=== PATIENT | female | born 2000 | race African-American/Black ===

== ENCOUNTER 2020-05-04 16:17 | Emergency (ER) | payer OTHER, SELFPAY ==
[2020-05-04 16:35] VITALS: BP 131/83; PULSE 85; RESP 15; TEMP 36.7; O2SAT 99; BMI 19.2
[2020-05-04 16:49] VITALS: BP 115/68; PULSE 77; RESP 16; TEMP 36.9; O2SAT 98
--- NOTE | 2020-05-04 17:18 | ED_ITS ---
HPI - Wound/Laceration General Chief Complaint: Recheck/Abnormal Lab/Rx Stated Complaint: SUTURE REMOVAL Time Seen by Provider: 05/04/20 17:10 History of Present Illness HPI narrative: patient is here for suture removal after cutting right thumb 10 days ago and complains that it still hurts but denies any redness or fever or inability to move the thumb Related Data Allergies Allergy/AdvReac Type Severity Reaction Status Date / Time No Known Allergies Allergy Verified 05/04/20 16:35 Review of Systems Review of Systems: patient has no numbness no weakness no red stripe up the arm no chills no joint pain PMFSH Past Medical History Source: nursing notes reviewed Medical History (Updated 05/04/20 @ 17:23 by KIKO Yañez) No known health problems Social History Social History Advance Directives: No Advance Directives Information Provided: Yes Physical Exam Vital Signs and I&O and Narrative: Vital Signs and I&O: Vital Signs Temp 98.5 F 05/04/20 16:49 Pulse 77 05/04/20 16:49 Resp 16 05/04/20 16:49 BP 115/68 05/04/20 16:49 Pulse Ox 98 05/04/20 16:49 Intake & Output 05/03/20 05/04/20 05/04/20 18:59 06:59 18:59 Weight 47.627 kg Body Mass Index 19.2 the right thumb proximal phalanx has [address] with the wound well approximated with with full range of motion in the joints, tendon function is normal, sensation distal is normal, there is no redness swelling discharge or evidence of infection General appearance no acute distress Neck is supple Respiratory no respiratory distress A&O x3, no numbness no weakness Course Course Course Narrative: suture removal Four sutures were removed from the right thumb with a tweezers and a scissors, n o bleeding, no remaining foreign body visible Discharge Plan Discharge Clinical Impression: Encounter for removal of sutures Patient Disposition: Home, Self-Care Instructions: Stitches Removal (ED) Additional Instructions: follow with were connection for any ongoing issue There is no sign of any infection now Okay to return to work in all activities Referrals: [facility] [Provider Group] - 2 days [facility] [Outside] - 2 days Stand Alone Forms: Work/School Release
== END 2020-05-04 17:45 | disposition home or self-care (01) ==
PROVIDERS: Emergency Provider Internal Medicine; PCP Specialist
DX: M79.644 Pain in right finger(s) (principal); Z48.02 Encounter for removal of sutures
CPT/HCPCS: 99283

== ENCOUNTER → 2020-12-07 12:54 | Outpatient (BNVA) | payer OTHER, SELFPAY | PROVIDERS: PCP Specialist; Visit Provider Advanced Practice Midwife | DX: Z32.01 Encounter for pregnancy test, result positive (principal); N92.6 Irregular menstruation, unspecified | CPT/HCPCS: 81025; 99212 ==

== ENCOUNTER 2020-12-14 09:00 | Outpatient (REF) | payer OTHER, SELFPAY ==
--- NOTE | ~2020-12-14 | US_ITS ---
EXAMINATION: OBSTETRICAL ULTRASOUND, FIRST TRIMESTER HISTORY: 20-year-old at 10.0 weeks of gestation Viability LMP: 10/05/2020 COMPARISON: None in this TECHNIQUE: Real time transabdominal imaging with color and M-mode Doppler. FINDINGS: A single, live IUP CRL of 30.8 mm c/w 10.0wks is noted. Heart Rate: 163 beats per minute. Normal-appearing yolk sac is present. Both maternal ovaries are seen and appear normal. GESTATIONAL AGE: 1. GA from LMP: 10.0 wks 2. GA from AUA: 10.0 wks ESTIMATED DATE OF DELIVERY: 1. RADHA from LMP: 07/12/2021 2. RADHA from AUA: 07/12/2021 US/US OB <= 14 weeks fetus IMPRESSION: 1. A single live IUP 2. CRL corresponds to 10.0 weeks confirming the RADHA of 07/08/2021. This note was generated with a voice recognition program. Please excuse any errors which may have been overlooked during my review of this note. Sometimes these errors may affect the content or meaning of a given sentence.
== END 2020-12-14 09:01 | disposition home or self-care (01) ==
LOC: HO.US 09:00
PROVIDERS: Visit Provider Advanced Practice Midwife
DX: Z34.91 Encounter for supervision of normal pregnancy, unspecified, first trimester (principal)
CPT/HCPCS: 76801

== ENCOUNTER → 2020-12-21 14:16 | Outpatient (BNVA) | payer OTHER, SELFPAY | PROVIDERS: PCP Specialist; Visit Provider Advanced Practice Midwife | DX: Z13.89 Encounter for screening for other disorder (principal) | CPT/HCPCS: 99212 ==

== ENCOUNTER 2021-01-01 13:44 | Outpatient (REF) | payer OTHER, SELFPAY ==
[2021-01-02 09:12] LABS: BV Int Neg Control Negative (Negative); BV Int Pos Control Positive (Positive)
[2021-01-02 10:44] LABS: CT PCR NOT DETECTED (Not Detect.); NG PCR NOT DETECTED (Not Detect.)
== END 2021-01-01 13:45 | disposition home or self-care (01) ==
LOC: HO.LAB 13:44
PROVIDERS: PCP Specialist; Visit Provider Advanced Practice Midwife
DX: O98.511 Other viral diseases complicating pregnancy, first trimester (principal); B00.9 Herpesviral infection, unspecified; O99.321 Drug use complicating pregnancy, first trimester; F12.90 Cannabis use, unspecified, uncomplicated; O26.891 Other specified pregnancy related conditions, first trimester; R12 Heartburn; Z3A.12 12 weeks gestation of pregnancy
CPT/HCPCS: 81003; 87480; 87491; 87510; 87591; 87660; 88142; 99212

== ENCOUNTER 2021-01-04 12:54 | Outpatient (REF) | payer OTHER, SELFPAY ==
--- NOTE | ~2021-01-04 | US_ITS ---
EXAMINATION: OBSTETRICAL ULTRASOUND, FIRST TRIMESTER HISTORY: 20-year-old at 13.0 weeks of gestation NT screening COMPARISON: 12/14/2020 TECHNIQUE: Real time transabdominal imaging with color and M-mode Doppler. FINDINGS: A single, live IUP CRL of 72.4 mm c/w 13.3wks is noted. Heart Rate: 150 beats per minute. Normal yolk sac seen. NT was 1.7.mm. NB Present The embryo appears sonographically wnl for this GA. Left ovary is within normal limits. Right ovary could not be visualized. GESTATIONAL AGE: 1. Established GA: 13.0 wks 2. GA from AUA: 13.3 wks ESTIMATED DATE OF DELIVERY: 1. Established RADHA: 07/12/2021 2. RADHA from [facility]: 07/09/2021 US/US OB 1T nuc measure IMPRESSION: 1. A single live IUP 2. Size equals dates 3. NT of 1.7 mm MFM Consultation: I reviewed the ultrasound findings along with significance of NT measurement. The NT of less than 3mm is generally reassuring. However, the sensitivity for T21 detection is only 60%. I reviewed the availability of serum aneuploidy screening which includes cell-free DNA and placental protein based tests. I discussed the sensitivity, false-positive rate, and other limitations associated with each test. I also reviewed the availability of invasive diagnostic tests that are associated small but definite risk of miscarriage. We also reviewed the differences between screening tests and diagnostic tests. After our discussion, she opted for the First trimester screening that is based on cell-free DNA or non-invasive testing (NIPT). The result will be faxed to your office in approximately 7 days. A follow up at 18 weeks for survey has been scheduled. Thank you very much for this referral. Total time 30 minutes. The time spent was devoted to counseling the patient about the disease and diagnosis, coordinating care including reviewing her records, pertinent lab data and studies, as well as discussing diagnostic evaluation and workup, plan therapeutic interventions and future disposition of care. This includes any additional research needed to obtain further information in formulating the plan of care of this patient. This note was generated with a voice recognition program. Please excuse any errors which may have been overlooked during my review of this note. Sometimes these errors may affect the content or meaning of a given sentence.
[2021-01-04 15:45] LABS: Hematocrit 37.8 % (37-47); Hemoglobin 12.6 g/dl (12.0-16.0); Mean Corpuscular HGB Conc 33.3 g/dl (31.0-35.0); Mean Corpuscular Hemoglobin 29.9 pg (27.0-33.0); Mean Corpuscular Volume 89.8 fL (80-98); Platelet Count 258 X10*3/uL (160-400); Red Blood Count 4.21 X10*6/uL (4.20-5.50); Red Cell Distribution Width 13.6 % (11.0-16.0); White Blood Count 10.7 X10*3/uL (4.8-10.8)
[2021-01-04 16:06] LABS: Glucose 1 Hour PP 50gm Dose 184 mg/dL (60-140)
[2021-01-04 17:12] LABS: Amphetamine Screen Urine Not Detected (Not Detect); Barbiturates, Urine Not Detected (Not Detect); Benzodiazepines Screen Urine Not Detected (Not Detect); Cannabinoid Screen Urine POSITIVE (Not Detect); Cocaine Screen Urine Not Detected (Not Detect); Opiate Screen Urine Not Detected (Not Detect); Phencyclidine Screen Urine Not Detected (Not Detect)
[2021-01-04 17:23] LABS: HCG Quantitative 78832 mIU/mL
[2021-01-07 03:39] LABS: HBsAGNum1 0.18 S/CO (0.00-0.99); Hepatitis B Surface Antigen Negative (Negative); ~HepC Num1 0.05 S/CO (0.00-0.79); ~Hepatitis C Antibody Nonreactive (Nonreactive)
[2021-01-07 03:49] LABS: Syphilis Screen Nonreactive (Nonreactive)
[2021-01-07 03:52] LABS: HIV AB/AG Nonreactive (Nonreactive); HIV Num 1 0.08 S/CO (0.00-0.99)
[2021-01-07 15:07] LABS: Hematocrit 36.4 % (35.0-45.0); Hemoglobin 12.5 g/dL (11.7-15.5); MCH 30.4 pg (27.0-33.0); MCV 88.6 fL (80.0-100.0); RBC 4.11 Million/uL (3.80-5.10); RDW 14.1 % (11.0-15.0)
[2021-01-08 05:12] LABS: Rubella IgG Antibody 1.91 Index
== END 2021-01-04 12:55 | disposition home or self-care (01) ==
LOC: HO.US 12:54
PROVIDERS: Obstetrics & Gynecology; PCP Specialist; Visit Provider Advanced Practice Midwife
DX: O20.0 Threatened abortion (principal); Z36.82 Encounter for antenatal screening for nuchal translucency
CPT/HCPCS: 76813; 80307; 83020; 84702; 85014; 85018; 85027; 85041; 86762; 86780; 86787; 86803; 86850; 86900; 86901; 87086; 87147; 87340; 87389

== ENCOUNTER 2021-01-18 10:30 | Outpatient (REF) | payer OTHER, SELFPAY ==
--- NOTE | ~2021-01-18 | US_ITS ---
EXAMINATION: OBSTETRICAL ULTRASOUND, Follow up HISTORY: 20-year-old at the 15.0 weeks of gestation Inability to detect heart tone COMPARISON: 01/04/2021 TECHNIQUE: Real time transabdominal imaging with color and M-mode Doppler. PRESENTATION: Vertex PLACENTA LOCATION: Anterior without previa AMNIOTIC FLUID: Normal MEASUREMENTS: 1. Heart Rate: 163 beats per minute Anatomy exam was not attempted due to early gestational age. GESTATIONAL AGE: 1. Established GA: 15.0 wks 2. GA from AUA: N/A wks ESTIMATED DATE OF DELIVERY: 1. Established RADHA: 07/12/2021 2. RADHA from AUA: N/A US/US OB follow up IMPRESSION: 1. A single fetus a single active fetus with heart rate of 163 bpm. 2. Normal amniotic fluid volume RECOMMENDATIONS: 1. Follow-up in approximately one month for survey Thank you very much for this referral. This note was generated with a voice recognition program. Please excuse any errors which may have been overlooked during my review of this note. Sometimes these errors may affect the content or meaning of a given sentence.
== END 2021-01-18 10:31 | disposition home or self-care (01) ==
LOC: HO.US 10:30
PROVIDERS: PCP Specialist; Visit Provider Obstetrics & Gynecology
DX: O26.892 Other specified pregnancy related conditions, second trimester (principal); R10.2 Pelvic and perineal pain; Z3A.15 15 weeks gestation of pregnancy
CPT/HCPCS: 76816; 81003; 99212

== ENCOUNTER → 2021-01-29 14:29 | Outpatient (BNVA) | payer OTHER, SELFPAY | PROVIDERS: PCP Specialist; Visit Provider Obstetrics & Gynecology | DX: O98.312 Other infections with a predominantly sexual mode of transmission complicating pregnancy, second trimester (principal); A60.00 Herpesviral infection of urogenital system, unspecified; Z3A.16 16 weeks gestation of pregnancy | CPT/HCPCS: 99212 ==

== ENCOUNTER 2021-02-15 13:37 | Outpatient (REF) | payer OTHER, SELFPAY ==
--- NOTE | ~2021-02-15 | US_ITS ---
EXAMINATION: US OBSTETRICAL CLINICAL INFORMATION: 20-year-old at 19.0 weeks of gestation Screening for anomaly COMPARISON: 01/18/2021 TECHNIQUE: Real-time transabdominal ultrasound was performed using C1-5 megahertz transducer. FINDINGS: A single, active, fetus is seen in vertex presentation. The placenta is anterior without previa, and the amniotic fluid volume is wnl. MEASUREMENTS: 1. Biparietal Diameter: 4.4 cm; 19.3 wks 2. Occipital Frontal Diameter: 5.8 cm 3. Head Circumference: 16.3 cm; 19.1 wks 4. Abdominal Circumference: 14.3 cm; 19.5 wks 5. Femur Length: 3.0 cm; 19.1 wks 6. Humerus Length: 2.8 cm; 19.0 wks 7. Tibia Length: 2.6 cm; 19.2 wks 8. Ulna Length: 2.4 cm; 18.5 wks 9. Lateral ventricle: 0.5 cm 10. Cerebellum: 1.9 cm; 19.6 wks 11. Cisterna Magna: 0.52 cm 12. Nuchal Fold: 3.4 mm 13. Heart Rate: 149 beats per minute Rt ovary: normal Lt ovary: normal Cervical length 4.4 cm on T/A. GESTATIONAL AGE: 1. Established GA: 19.0 wks 2. GA from [facility]: 19.3 wks ESTIMATED DATE OF DELIVERY: 1. Established RADHA: 07/12/2021 2. RADHA from [facility]: 07/09/2021 ANATOMY: The visualized anatomy includes but not limited to: 1. Cranium: Normal 2. Intracranial anatomy: cavum septum pellucidi, lateral ventricles, choroid plexus, cerebellum, posterior fossa, third and fourth ventricles. 3. face: orbits, lip/palate, profile, nasal bone 4. Heart: four-chamber view of the heart, ventricular septum, foramen ovale, pulmonary vein, left and right outflow tracts, three-vessel view, 3 vessel trachea view, aortic and ductal arches, situs.. 5. Diaphragm: Normal 6. Abdominal wall: Normal 7. Cord Insertion: Normal 8. Spine: Cervical, thoracic, lumbar, sacral. 9. Stomach: Normal size and shape 10. Right Kidney: Normal 11. Left Kidney: Normal 12. 3 vessel cord: Normal 13. Upper extremity: Open hands, fifth digit. 14. Lower extremity: Tibia, fibula, bilateral feet. 15. Bladder: Normal 16. Genitalia: Male, patient aware US/US OB /maternal detail IMPRESSION: 1. Single, living, intrauterine with appropriate biometry. 2. Normal survey DISCUSSION: I reviewed today's ultrasound findings. We discussed the limitations of ultrasound in diagnosing aneuploidy and other congenital abnormalities. I reviewed the differences between screening test and diagnostic test. Amniocentesis was discussed and declined. She was informed that the baseline incidence of congenital abnormalities is approximately 3-5%. Not all these conditions are diagnosable in utero. RECOMMENDATIONS: 1. f/u PRN Thank you for allowing me to participate in her care. Total time 20 minutes. The time spent was devoted to counseling the patient about the disease and diagnosis, coordinating care including reviewing her records, pertinent lab data and studies, as well as discussing diagnostic evaluation and workup, plan therapeutic interventions and future disposition of care. This includes any additional research needed to obtain further information in formulating the plan of care of this patient. This note was generated with a voice recognition program. Please excuse any errors which may have been overlooked during my review of this note. Sometimes these errors may affect the content or meaning of a given sentence.
== END 2021-02-15 13:38 | disposition home or self-care (01) ==
LOC: HO.US 13:37
PROVIDERS: Visit Provider Advanced Practice Midwife
DX: O35.9XX0 Maternal care for (suspected) fetal abnormality and damage, unspecified, not applicable or unspecified (principal)
CPT/HCPCS: 76811

== ENCOUNTER 2021-02-19 13:31 | Outpatient (REF) | payer OTHER, SELFPAY | END 2021-02-19 13:32 | disposition home or self-care (01) | LOC: HO.LAB 13:31 | PROVIDERS: Visit Provider Advanced Practice Midwife | DX: O21.9 Vomiting of pregnancy, unspecified (principal); Z3A.19 19 weeks gestation of pregnancy | CPT/HCPCS: 87086; 99212 ==

== ENCOUNTER → 2021-03-06 14:28 | Outpatient (BNVA) | payer OTHER, SELFPAY | PROVIDERS: Visit Provider Advanced Practice Midwife | DX: O99.810 Abnormal glucose complicating pregnancy (principal); Z3A.21 21 weeks gestation of pregnancy | CPT/HCPCS: 99212 ==

== ENCOUNTER → 2021-04-05 14:26 | Outpatient (BNVA) | payer OTHER, SELFPAY | PROVIDERS: PCP Internal Medicine; Visit Provider Advanced Practice Midwife | DX: O99.810 Abnormal glucose complicating pregnancy (principal); Z3A.26 26 weeks gestation of pregnancy | CPT/HCPCS: 81003; 99212 ==

== ENCOUNTER 2021-04-18 10:40 | Outpatient (REF) | payer OTHER, SELFPAY ==
[2021-04-18 12:54] LABS: Appearance Urine HAZY; Color Urine YELLOW; Glucose Urine UA NEG (NEG); Leukocyte Esterase Urine NEG (NEG); Nitrite Urine NEG (NEG); Urine Blood NEG (NEG); Urine Ketones NEG (NEG); Urine Protein TRACE MG/DL (NEG-TRACE)
[2021-04-18 14:49] LABS: Amorphous Sediment Urine 4+ /LPF; Bacteria Urine 1+ /LPF; RBC Urine 0 /HPF (0); Squamous Epithelial Cell Urine 3+ /LPF; WBC Urine 0-2 /HPF (0-4)
== END 2021-04-18 10:41 | disposition home or self-care (01) ==
LOC: HO.LAB 10:40
PROVIDERS: Absent Provider Advanced Practice Midwife; PCP Specialist; Visit Provider Advanced Practice Midwife
DX: Z34.92 Encounter for supervision of normal pregnancy, unspecified, second trimester (principal); R11.2 Nausea with vomiting, unspecified
CPT/HCPCS: 81001

== ENCOUNTER → 2021-04-19 13:32 | Outpatient (BNVA) | payer OTHER, SELFPAY | PROVIDERS: PCP Internal Medicine; Visit Provider Advanced Practice Midwife | DX: Z34.83 Encounter for supervision of other normal pregnancy, third trimester (principal); Z3A.28 28 weeks gestation of pregnancy; Z83.3 Family history of diabetes mellitus | CPT/HCPCS: 99212 ==

== ENCOUNTER → 2021-06-10 14:42 | Outpatient (BNVA) | payer OTHER, SELFPAY | PROVIDERS: PCP Internal Medicine; Visit Provider Advanced Practice Midwife | DX: O26.843 Uterine size-date discrepancy, third trimester (principal); Z3A.35 35 weeks gestation of pregnancy | CPT/HCPCS: 81003; 99212 ==

== ENCOUNTER 2021-06-11 11:30 | Outpatient (REF) | payer OTHER, SELFPAY ==
[2021-06-11 12:07] LABS: Hematocrit 29.5 % (37.0-47.0); Hemoglobin 9.4 g/dl (12.0-16.0); Mean Corpuscular HGB Conc 31.9 g/dl (31.0-35.0); Mean Corpuscular Hemoglobin 28.3 pg (27.0-33.0); Mean Corpuscular Volume 88.9 fL (80.0-98.0); Mean Platelet Volume 12.8 fL (9.4-12.3); Platelet Count 238 X10*3/uL (160-400); Red Blood Count 3.32 X10*6/uL (4.20-5.50); Red Cell Distribution Width 14.2 % (11.0-16.0); White Blood Count 8.8 X10*3/uL (4.8-10.8)
[2021-06-11 13:03] LABS: Glucose Fasting 68 mg/dL (60-99)
[2021-06-11 13:32] LABS: Glucose 1 Hour 181 mg/dL
[2021-06-11 14:42] LABS: Glucose 2 Hour 180 mg/dL
[2021-06-11 15:38] LABS: Glucose 3 Hour 149 mg/dL
[2021-06-12 08:31] LABS: Syphilis Screen Nonreactive (Nonreactive)
== END 2021-06-11 11:31 | disposition home or self-care (01) ==
LOC: HO.LAB 11:30
PROVIDERS: Absent Provider Advanced Practice Midwife; PCP Specialist; Visit Provider Advanced Practice Midwife
DX: O99.810 Abnormal glucose complicating pregnancy (principal); R73.9 Hyperglycemia, unspecified
CPT/HCPCS: 36415; 82951; 85027; 86780

== ENCOUNTER 2021-10-19 16:25 | Emergency (ER) | payer OTHER, SELFPAY ==
[2021-10-19 16:37] VITALS: BP 132/81; PULSE 93; RESP 12; TEMP 36.7; O2SAT 98; BMI 20.6
--- NOTE | 2021-10-19 16:49 | ED.DENTAL ---
HPI - Dental/Oral General Chief complaint: Dental/Oral Stated complaint: wisdom tooth pain/cant swallow Time Seen by Provider: 10/19/21 16:49 Source: patient Mode of arrival: ambulatory Limitations: no limitations History of Present Illness HPI Narrative: 20 y/o female presenting with left sided wisdom tooth pain for the last 3 days. She states she was told she needed her wisdom teeth out a few years ago when she saw her dentist but never did because she was scared. She states 3 days ago she started having swelling and pain in her left lower wisdom tooth. She states it hurts to fully open her jaw and chew. She has not eaten anything today because of the pain but is okay with drinking. She denies any throat swelling, fever, chills. No neck swelling. MD Complaint: tooth pain Location: Tooth # (17) Onset (ago): day(s) (3) Duration: constant Severity: severe Severity scale (1-10): 9 Relieving factors: nothing Exacerbating factors: chewing and swallowing Context: poor dental care Associated symptoms: gum swelling and pain with swallowing Treatment prior to arrival: none Related Data Previous Rx's Medication Instructions Recorded vitamin with calcium 1 tab PO DAILY #30 tab 12/07/20 no.72-iron 27 mg-folic acid 1 mg tablet ( Vitamins Plus Low Iron) ondansetron HCl 4 mg tablet 4 mg PO Q8H PRN #30 tab 02/19/21 (Zofran) blood sugar diagnostic (FreeStyle #100 ea 06/12/21 Lite Strips) blood-glucose meter (FreeStyle #1 ea 06/12/21 Lite Meter) lancets 28 gauge (FreeStyle #100 ea 06/12/21 Lancets) ferrous sulfate 324 mg (65 mg 324 mg PO TID #90 tab 06/13/21 iron) tablet,delayed release amoxicillin 500 mg-potassium 1 tab PO Q12H #20 tab 10/19/21 clavulanate 125 mg tablet (Augmentin) ibuprofen 600 mg tablet 600 mg PO Q8H PRN #14 tab 10/19/21 tramadol 50 mg tablet 50 mg PO Q8H PRN #8 tab 10/19/21 Allergies Allergy/AdvReac Type Severity Reaction Status Date / Time No Known Allergies Allergy Verified 10/19/21 16:37 Review of Systems Constitutional: Constitutional: Denies chills, Denies fever(s) and Reports headache(s) Eyes: Eyes: Reports no additional eye complaints ENT: Reports dental pain, Denies dizziness, Denies dry mouth, Reports facial pain, Reports headache(s), Denies lip swelling, Reports mouth pain, Denies throat swelling and Denies tongue swelling Cardiovascular: Cardiovascular: Denies chest pain Respiratory: Respiratory: Denies cough Gastrointestinal: Gastrointestinal: Denies nausea and Denies vomiting Integumentary/Breasts: Skin/Breast: Denies rash Neurologic: Denies dizziness and Reports headache(s) Psychiatric: Psychiatric: Reports anxiety Hematologic/Lymphatic: Hematologic/Lymphatic: Denies easy bleeding Allergic/Immunologic: Allergic/Immunologic: Denies lip swelling, Denies throat swelling and Denies tongue swelling PMFSH Past Medical History Medical History HSV (herpes simplex virus) anogenital infection Family History Family History Mother Hypertension Father High cholesterol Maternal Grandmother Diabetes Paternal Grandmother Alzheimers disease Diabetes Brother Sickle cell trait Brother Autism Social History Social History Household Members: Family Alcohol intake: never Patient Tobacco Use Status: Former Tobacco user Substance Use Type: Marijuana Advance Directives: No Advance Directives Information Provided: No Gender identity: Female Physical Exam Vital Signs: Vital Signs: Last Vital Signs Temp 98.0 F 10/19/21 16:37 Pulse 93 10/19/21 16:37 Resp 12 10/19/21 16:37 BP 132/81 10/19/21 16:37 Pulse Ox 98 10/19/21 16:37 BMI result Body Mass Index 20.6 Const: General: cooperative, healthy appearing and no acute distress Nutritional Appearance: average body habitus Orientation/consciousness: patient oriented x3 Limitations: no limitations HEENT: Head: Yes normal to inspection, Yes normocephalic and Yes atraumatic Ears: hearing grossly normal bilaterally and TM's normal bilaterally General nose exam: Normal external nose present and Normal nares present Face and sinus: Yes normal facial exam and Yes face symmetric Mouth: Normal oral and palatal mucosa present, lip normal, tongue normal and moist mucous membranes Teeth and gingiva: abnormal tooth and associated gingiva lower left third molar tender and with associated gingival edema and gingiva abnormal edematous and tender Throat: Yes posterior oropharynx normal, Yes tonsils normal and Yes uvula midline Eyes: General: appearance normal, both eyes and all related structures Neck: Neck: Yes normal visual inspection, Yes trachea midline, No anterior neck swelling, Yes lymphadenopathy (left submandibular) and Yes tender Chest: Chest palpation & inspection: normal inspection of the chest Resp: Effort & Inspection: normal respiratory effort and able to speak in complete sentences Skin: General skin exam: no rashes or lesions noted Neuro: General: patient oriented x3 Extrem: General: Yes normal to inspection and Yes full ROM Psych: Appearance: grossly normal and well kempt Mental Status: mental status grossly normal Course Course Course Narrative: 28-year-old female presenting to the ER with left 3rd molar pain with associated gingival swelling. No palpable abscess on examination. Most likely has impacted wisdom teeth that needs extraction. Will give empiric antibiotics, NSAID and pain control. She has a appointment with the dentist on November 08. Will provide emergency dentist list as well in case she can get in sooner. Stable for discharge home. Critical Care Time Critical Care Time Critical Care Time: No Discharge Plan Discharge Clinical Impression: Toothache Patient Disposition: Home, Self-Care Instructions: Toothache (ED) Additional Instructions: Take the prescribed medications as directed. Also recommend taking Tylenol 1000 mg every 6 hours around the clock. Recommend [id number] Orajel. You could also use a hot tea bag to the area to help with pain and swelling. Follow-up with dentist EVETTE. If you develop new or worsening symptoms call 911 or come back to the ER for further evaluation. Prescriptions: New amoxicillin-pot clavulanate [Augmentin] 500-125 mg tablet 1 tab PO Q12H Qty: 20 0RF ibuprofen 600 mg tablet 600 mg PO Q8H PRN (Reason: pain) Qty: 14 0RF tramadol 50 mg tablet 50 mg PO Q8H PRN (Reason: pain) Qty: 8 0RF No Action (DME) blood-glucose meter [FreeStyle Lite Meter] Kit See Rx Instructions miscellaneous .MEDSUPPLY Qty: 1 0RF Rx Instructions: As directed QID (DME) FreeStyle Lite Strips Strip See Rx Instructions .MEDSUPPLY Qty: 100 1RF Rx Instructions: As directed QID x 30d (DME) lancets [FreeStyle Lancets] 28 gauge misc See Rx Instructions .MEDSUPPLY Qty: 100 1RF Rx Instructions: As directed QID x30d ferrous sulfate 324 mg (65 mg iron) tablet,delayed release (DR/EC) 324 mg PO TID Qty: 90 2RF Vitamin Plus Low Iron 27 mg iron- 1 mg tablet 1 tab PO DAILY Qty: 30 11RF ondansetron HCl [Zofran] 4 mg tablet 4 mg PO Q8H PRN (Reason: nausea and vomiting) Qty: 30 1RF
[2021-10-19] MEDS: traMADoL HCL 50 MG TABLET PO (17:04)
[2021-10-19] MEDS: Amoxicillin/Potassium Clav 500 MG TABLET PO (17:04)
[2021-10-19] MEDS: Ketorolac Tromethamine 30 MG/ML VIAL IM (17:05)
== END 2021-10-19 17:31 | disposition home or self-care (01) ==
LOC: HO.ED 17:01
PROVIDERS: Emergency Provider Internal Medicine
DX: K08.89 Other specified disorders of teeth and supporting structures (principal)
CPT/HCPCS: 96372; 99284; J1885

== ENCOUNTER 2022-06-13 18:53 | Emergency (ER) | payer OTHER, SELFPAY ==
--- NOTE | ~2022-06-13 | XR_ITS ---
EXAMINATION: XR CHEST CLINICAL INFORMATION: Cough and fever. COMPARISON: None TECHNIQUE: Frontal view of the chest was obtained. 9:48 PM FINDINGS: No significant abnormality is noted involving the heart, lungs, mediastinum, bony thorax or soft tissues. XR/XR chest 1V IMPRESSION: Unremarkable examination.
[2022-06-13 21:39] VITALS: BP 107/73; PULSE 108; RESP 16; TEMP 37.3; O2SAT 99; BMI 21.0
--- OUTSIDE RECORDS SUMMARY | 2022-06-13 21:45 | XMS_ITS | Continuity of Care Document ---
:2000 Author Organization [facility] Address [address] [place] [address]- Care Team Providers Name Role Phone Not on Staff, PCP Primary Care Physician Unavailable Encounter [facility] [place] Date(s): 01/17/21 - 01/17/[address] [id number] Discharge Disposition: A-D/C Home Attending Physician: Evelyn Wilks MD Admitting Physician: Evelyn Wilks MD Referring Physician: Efe MONTERO, Evelyn Uribe Medications Amoxicillin Capsule 500 mg, By Mouth, 3 times a day, Maintenance, 01/17/21 13:17:00 EDT Start Date: 01/17/21 Status: OrderedFlagyl 500 mg oral tablet 1 tablet = 500 mg, By Mouth, Every 12 hours, # 20 tablet, 0 Refills, Maintenance, 01/17/21 13:16:00 EDT, Tablet, Partial fill upon patient request if the prescription is for a schedule II opioid drug. Start Date: 01/17/21 Status: OrderedPepcid 20 mg oral tablet 1 tablet = 20 mg, By Mouth, 2 times a day, # 60 tablet, 0 Refills, Maintenance, 01/17/21 13:15:00 EDT, Tablet, Partial fill upon patient request Start Date: 01/17/21 Status: OrderedPrenatal Multivitamins By Mouth, Daily, 0 Refills, Maintenance, 01/17/21 13:15:00 EDT, Partial fill upon patient request ifthe prescription is for a schedule II opioid drug. Start Date: 01/17/21 Status: OrderedValtrex 500 mg oral tablet 500 mg, 1, tablet, By Mouth, Daily, # 6 tablet, Refills 0, Maintenance, 01/17/21 13:15:00 EDT, Partial fill upon patient request if the prescription is for a schedule II opioid drug. Start Date: 01/17/21 Stop Date: 01/20/21 Status: Ordered Problem List Condition Effective Dates Status Health Status Informant Herpes genitalia(Confirmed) Active Vital Signs Most recent to oldest [Reference Range]: 1 Weight 53.6 kg (01/17/21 12:34 PM) Oxygen Saturation [94-100 %] 100 % (01/17/21 12:34 PM) Pulse Rate [55-90 bpm] 82 bpm (01/17/21 12:34 PM) Blood Pressure [90-138/55-84 mm Hg] 121/69 mm Hg (01/17/21 12:34 PM) Respiratory Rate [16-30 br/min] 18 br/min (01/17/21 12:34 PM) Temperature [96.8-100.4 DegF] 98.3 DegF (01/17/21 12:34 PM) Mode of Delivery (Oxygen) Room air (01/17/21 12:34 PM) Blood pressure sites Arm, right 1 (01/17/21 12:34 PM) Temperature Route Oral (01/17/21 12:34 PM) Dry Weight 53.6 kg (01/17/21 12:34 PM) 1Result Comment: right upper arm measured 26cm Social History Social History Type Response Smoking Status Never (less than 100 in life time) entered on: 01/17/21 Sex
--- NOTE | 2022-06-13 22:51 | ED_ITS ---
HPI - URI/Sore Throat General Chief Complaint: Upper Respiratory Symptoms Stated Complaint: body aches , dry cough Time Seen by Provider: 06/13/22 21:24 Source: patient Mode of arrival: ambulatory Limitations: no limitations History of Present Illness HPI Narrative: Patient comes emergency room complaining of body aches, dry cough, headache for 3 days. Patient complaining of subjective fever and chills, no nausea vomiting or diarrhea. Patient's daughter has the same symptoms. Related Data Previous Rx's Medication Instructions Recorded vitamin with calcium 1 tab PO DAILY #30 tabs 12/07/20 no.72-iron 27 mg-folic acid 1 mg tablet ( Vitamins Plus Low Iron) ondansetron HCl 4 mg tablet 4 mg PO Q8H PRN nausea and 02/19/21 (Zofran) vomiting #30 tabs blood sugar diagnostic (FreeStyle #100 ea 06/12/21 Lite Strips) blood-glucose meter (FreeStyle #1 ea 06/12/21 Lite Meter kit) lancets 28 gauge (FreeStyle #100 ea 06/12/21 Lancets) ferrous sulfate 324 mg (65 mg 324 mg PO TID #90 tabs 06/13/21 iron) tablet,delayed release amoxicillin 875 mg-potassium 1 tab PO Q12H 10 days #20 tabs 10/19/21 clavulanate 125 mg tablet ibuprofen 600 mg tablet 600 mg PO Q6H PRN pain #60 tabs 10/19/21 tramadol 50 mg tablet 50 mg PO Q8H PRN pain #14 tabs 10/20/21 acetaminophen 500 mg capsule 500 mg PO Q6H PRN fever or pain 06/14/22 #20 caps oseltamivir 75 mg capsule (Tamiflu) 75 mg PO Q12H 5 days #10 caps 06/14/22 Allergies Allergy/AdvReac Type Severity Reaction Status Date / Time No Known Allergies Allergy Verified 10/19/21 16:37 Review of Systems Review of Systems: Constitutional : No Weight loss, complaining of fever and chills,No Night Sweats, Complaining of fatigue and generalized malaise, complaining of body ache ENT/Mouth : No Hearing loss, No Ear Pain, No Nasal Congestion, No Sinus Pain, No Hoarseness, No sore throat, No Rhinorrhea, No Swallowing Difficulty Eyes: No Eye Pain, No Swelling, No Redness, No Foreign Body, No Discharge, No Vision Changes Cardiovascular : No Chest Pain, No SOB, No Dyspnea on Exertion, No Orthopnea, No Edema, No Palpitations Respiratory : complaining of dry cough Cough, No Sputum, No Wheezing, No Smoke Exposure, No Dyspnea Gastrointestinal : No Nausea, No Vomiting, No Diarrhea, No Constipation, No abdominal Pain, No Hematochezia, No Melena Genitourinary : no irregular bleeding, No Dysuria, No Urinary Frequency, No He maturia, No Urinary Incontinence, No Urgency, No Flank Pain, No Urinary Flow Changes, No Hesitancy Musculoskeletal : No joint pain, No Myalgias, No Joint Swelling Skin : No Skin Lesions, No rash Neuro : No Weakness, No Numbness, No Paresthesias, No Loss of Consciousness, No Dizziness, No Headache Psych : No Anxiety/Panic, No Depression, No SI/HI/AH/VH, No Social Issues, Heme/Lymph: No Bruising, No Bleeding,No Lymphadenopathy Endocrine : No Polyuria, No Polydipsia, No Temperature Intolerance [facility] Past Medical History Medical History HSV (herpes simplex virus) anogenital infection Family History Family History Mother Hypertension Father High cholesterol Maternal Grandmother Diabetes Paternal Grandmother Alzheimers disease Diabetes Brother Sickle cell trait Brother Autism Social History Social History Household Members: Family Alcohol intake: never Patient Tobacco Use Status: Former Tobacco user Substance Use Type: Marijuana Advance Directives: No Advance Directives Information Provided: No Gender identity: Female Physical Exam Vital Signs: Vital Signs: Last Vital Signs Temp 99.0 F 06/13/22 23:28 Pulse 81 06/13/22 23:28 Resp 19 06/13/22 23:28 BP 127/77 06/13/22 23:28 Pulse Ox 99 06/13/22 23:55 O2 Del Method 06/13/22 23:55 BMI result Body Mass Index 21.0 Const: Other: Appearance: Alert. Oriented X3. No acute distress. Eyes: Pupils equal, round and reactive to light. ENT: Pharynx normal. erythematous oropharynx, no exudates Neck: Normal inspection. Neck supple. No lymph nodes noted. No crepitus CVS: Normal heart rate and rhythm. Pulses normal. Normal S1 and S2 Respiratory: No respiratory distress. Breath sounds normal. No Wheezing. No rales Abdomen: Soft and nontender. No rigidity. No distention. Skin: Skin warm and dry. Normal skin color. Normal skin turgor. Extremities: No lower extremity edema. No Lacerations. No Rash Neuro: Oriented X 3. No motor deficit. No sensory deficit. Moving all extremities. No slurred speech. CN 2 through 12 grossly intact Psych: calm, cooperative, normal affect Course Course Course Narrative: patient has clear lung sounds, oxygen saturation normal, no fever. Patient was given Tylenol, chest x-ray pending. Chest x-ray negative, RSV / influenza/ COVID pending. Patient tested positive for influenza A. Medications Administered Discontinued Medications Generic Name Dose Route Start Last Admin Trade Name Freq PRN Reason Stop Dose Admin Acetaminophen 975 mg 06/13/22 21:45 06/13/22 22:57 Acetaminophen 325 Mg Tablet PO 06/13/22 21:46 975 mg ONCE ONE Administration MDM - URI/Sore Throat Lab Data Labs: Lab Results 06/13/22 Range/Units 22:54 Influenza Type A (PCR) POSITIVE A (Negative) Influenza Type B (PCR) NEGATIVE (Negative) RSV RNA Qual (PCR) NEGATIVE (Negative) SARS-CoV-2 RNA (RT-PCR) NEGATIVE (Negative) Imaging Data Chest x-ray: Radiologist's impression: FINDINGS: No significant abnormality is noted involving the heart, lungs, mediastinum, bony thorax or soft tissues. XR/XR chest 1V IMPRESSION: Unremarkable examination. Discharge Plan Discharge Clinical Impression: Influenza A Patient Disposition: Home, Self-Care Instructions: Influenza (ED) Additional Instructions: Please follow-up with your primary care physician tomorrow. If you have any worsening or new symptoms, please return to the emergency room or call 911 Prescriptions: New oseltamivir [Tamiflu] 75 mg capsule 75 mg PO Q12H 5 Days Qty: 10 0RF acetaminophen 500 mg capsule 500 mg PO Q6H PRN (Reason: fever or pain) Qty: 20 0RF No Action (DME) blood-glucose meter [FreeStyle Lite Meter] Kit See Rx Instructions miscellaneous .MEDSUPPLY Qty: 1 0RF Rx Instructions: As directed QID (DME) FreeStyle Lite Strips Strip See Rx Instructions .MEDSUPPLY Qty: 100 1RF Rx Instructions: As directed QID x 30d (DME) lancets [FreeStyle Lancets] 28 gauge misc See Rx Instructions .MEDSUPPLY Qty: 100 1RF Rx Instructions: As directed QID x30d ferrous sulfate 324 mg (65 mg iron) tablet,delayed release (DR/EC) 324 mg PO TID Qty: 90 2RF amoxicillin-pot clavulanate 875-125 mg tablet 1 tab PO Q12H 10 Days Qty: 20 0RF ibuprofen 600 mg tablet 600 mg PO Q6H PRN (Reason: pain) Qty: 60 0RF tramadol 50 mg tablet 50 mg PO Q8H PRN (Reason: pain) Qty: 14 0RF Rx Instructions: May partially fill upon patient request Vitamin Plus Low Iron 27 mg iron- 1 mg tablet 1 tab PO DAILY Qty: 30 11RF ondansetron HCl [Zofran] 4 mg tablet 4 mg PO Q8H PRN (Reason: nausea and vomiting) Qty: 30 1RF Stand Alone Forms: Work/School Release
[2022-06-13] MEDS: Acetaminophen 325 MG TABLET 975 MG PO (22:57)
[2022-06-13 23:28] VITALS: BP 127/77; PULSE 81; RESP 19; TEMP 37.2; O2SAT 96
[2022-06-13 23:43] LABS: Influenza A PCR POSITIVE (Negative); Influenza B PCR NEGATIVE (Negative); Resp Syncy Virus RNA Qual PCR NEGATIVE (Negative); SARS COV2 PCR INHOUSE NEGATIVE (Negative)
[2022-06-13 23:55] VITALS: O2SAT 99
[2022-06-14 01:15] VITALS: BP 116/73; PULSE 84; RESP 18; TEMP 37.4; O2SAT 97
== END 2022-06-14 01:16 | disposition home or self-care (01) ==
PROVIDERS: Emergency Provider Emergency Medicine
DX: J10.1 Influenza due to other identified influenza virus with other respiratory manifestations (principal); M79.10 Myalgia, unspecified site; R05.9 Cough, unspecified; R51.9 Headache, unspecified; Z20.822 Contact with and (suspected) exposure to COVID-19; Z87.891 Personal history of nicotine dependence
CPT/HCPCS: 0241U; 71045; 99283; 99284

== ENCOUNTER 2022-06-18 14:20 | Emergency (ER) | payer OTHER, SELFPAY ==
--- NOTE | ~2022-06-18 | XR_ITS ---
EXAMINATION: XR CHEST CLINICAL INFORMATION: Influenza. COMPARISON: 06/13/2022 chest radiograph. TECHNIQUE: 2 views of the chest were obtained. FINDINGS: No significant abnormality is noted involving the heart, lungs, mediastinum, bony thorax or soft tissues. XR/XR chest 2V IMPRESSION: No acute cardiopulmonary process.
[2022-06-18 14:21] VITALS: BP 115/64; PULSE 104; RESP 20; TEMP 36.7; O2SAT 96; BMI 21.2
--- NOTE | 2022-06-18 14:34 | ED_ITS ---
HPI - General Adult General Chief complaint: General Medical Stated complaint: Cough Time Seen by Provider: 06/18/22 14:32 Source: patient Mode of arrival: ambulatory Limitations: no limitations History of Present Illness HPI narrative: patient diagnosed with the flu 5 days ago, still vomiting and coughing. In addition having diarrhea, watery. Onset (ago): day(s) Radiation: non-radiation Severity: mild Pain Consistency: intermittent Exacerbating factors: none Associated symptoms: cough, fever/chills, nausea/vomiting and other (diarrhea) Related Data Previous Rx's Medication Instructions Recorded vitamin with calcium 1 tab PO DAILY #30 tabs 12/07/20 no.72-iron 27 mg-folic acid 1 mg tablet ( Vitamins Plus Low Iron) ondansetron HCl 4 mg tablet 4 mg PO Q8H PRN nausea and 02/19/21 (Zofran) vomiting #30 tabs blood sugar diagnostic (FreeStyle #100 ea 06/12/21 Lite Strips) blood-glucose meter (FreeStyle #1 ea 06/12/21 Lite Meter kit) lancets 28 gauge (FreeStyle #100 ea 06/12/21 Lancets) ferrous sulfate 324 mg (65 mg 324 mg PO TID #90 tabs 06/13/21 iron) tablet,delayed release amoxicillin 875 mg-potassium 1 tab PO Q12H 10 days #20 tabs 10/19/21 clavulanate 125 mg tablet ibuprofen 600 mg tablet 600 mg PO Q6H PRN pain #60 tabs 10/19/21 tramadol 50 mg tablet 50 mg PO Q8H PRN pain #14 tabs 10/20/21 acetaminophen 500 mg capsule 500 mg PO Q6H PRN fever or pain 06/14/22 #20 caps oseltamivir 75 mg capsule (Tamiflu) 75 mg PO Q12H 5 days #10 caps 06/14/22 ondansetron 4 mg disintegrating 4 mg PO Q8H PRN nausea and 06/18/22 tablet vomiting 5 days #20 tabs [id number] 2.5 20 ml PO Q4H PRN cough #118 mL 06/18/22 mg-5 mg-50 mg/5 mL oral liquid (Robitussin Cough and Cold CF) Allergies Allergy/AdvReac Type Severity Reaction Status Date / Time No Known Allergies Allergy Verified 10/19/21 16:37 Review of Systems Review of Systems: Yes all other systems are reviewed and are negative [facility] Past Medical History Medical History HSV (herpes simplex virus) anogenital infection Family History Family History Mother Hypertension Father High cholesterol Maternal Grandmother Diabetes Paternal Grandmother Alzheimers disease Diabetes Brother Sickle cell trait Brother Autism Social History Social History Household Members: Family Alcohol intake: never Patient Tobacco Use Status: Former Tobacco user Substance Use Type: Marijuana Advance Directives: No Gender identity: Female Physical Exam ED Vital Signs: Vital Signs - 24 hr 06/18/22 14:21 Temperature 98.1 F Pulse Rate 104 H Respiratory Rate 20 Blood Pressure 115/64 Pulse Oximetry 96 Oxygen Delivery Method Room Air BMI result Body Mass Index 21.2 Const General: healthy appearing Nutritional Appearance: average body habitus Orientation/consciousness: oriented to person and patient oriented x3 Limitations: no limitations HENMT Head: Yes normal to inspection Ears: external ears normal General nose exam: Normal external nose present Mouth: Normal oral and palatal mucosa present and oropharynx normal Throat: Yes posterior oropharynx normal Eyes General: appearance normal, both eyes and all related structures Neck Neck: Yes normal visual inspection Chest Chest palpation & inspection: normal inspection of the chest Resp Other: diffuse expiratory wheeze Cardio Jugular venous distension: no JVD Rate: regular rate Rhythm: regular rhythm Heart sounds: S1 normal heart sound present and S2 normal heart sound present GI Inspection: Yes normal to inspection Palpation (GI): Soft to palpation, nontender and No hepatosplenomegaly present Auscultation: normal bowel sounds General: Yes no CVA tenderness Back/Spine/Pelvis Back: no CVA tenderness Skin General skin exam: no rashes or lesions noted Neuro General: oriented to person and patient oriented x3 Cranial nerves: Yes CN's II-XII intact bilaterally Motor exam (neuro): 5/5 motor strength present throughout Extrem General: Yes normal to inspection Psych Appearance: grossly normal Course Reevaluation(s) Reevaluation #1: no infiltrate will encourage patient to use albuterol pump and will place on tessalon perles Time: 15:22 Medical Decision Making Imaging Data Chest x-ray: My impression: no infiltrate Discharge Plan Discharge Clinical Impression: Influenza A Patient Disposition: Home, Self-Care Prescriptions: New ondansetron 4 mg tablet,disintegrating 4 mg PO Q8H PRN (Reason: nausea and vomiting) 5 Days Qty: 20 0RF Robitussin Cough and Cold CF 2.5-5-50 mg/5 mL liquid 20 ml PO Q4H PRN (Reason: cough) Qty: 118 0RF No Action (DME) blood-glucose meter [FreeStyle Lite Meter] Kit See Rx Instructions miscellaneous .MEDSUPPLY Qty: 1 0RF Rx Instructions: As directed QID (DME) FreeStyle Lite Strips Strip See Rx Instructions .MEDSUPPLY Qty: 100 1RF Rx Instructions: As directed QID x 30d (DME) lancets [FreeStyle Lancets] 28 gauge misc See Rx Instructions .MEDSUPPLY Qty: 100 1RF Rx Instructions: As directed QID x30d ferrous sulfate 324 mg (65 mg iron) tablet,delayed release (DR/EC) 324 mg PO TID Qty: 90 2RF amoxicillin-pot clavulanate 875-125 mg tablet 1 tab PO Q12H 10 Days Qty: 20 0RF ibuprofen 600 mg tablet 600 mg PO Q6H PRN (Reason: pain) Qty: 60 0RF tramadol 50 mg tablet 50 mg PO Q8H PRN (Reason: pain) Qty: 14 0RF Rx Instructions: May partially fill upon patient request oseltamivir [Tamiflu] 75 mg capsule 75 mg PO Q12H 5 Days Qty: 10 0RF acetaminophen 500 mg capsule 500 mg PO Q6H PRN (Reason: fever or pain) Qty: 20 0RF Vitamin Plus Low Iron 27 mg iron- 1 mg tablet 1 tab PO DAILY Qty: 30 11RF ondansetron HCl [Zofran] 4 mg tablet 4 mg PO Q8H PRN (Reason: nausea and vomiting) Qty: 30 1RF
[2022-06-18] MEDS: Ondansetron ODT 4 MG TAB.RAPDIS TRANSLINGU (15:44)
[2022-06-18] MEDS: Albuterol Sulfate 90 MCG 8 GM INHALER 4 PUFF INHALE (15:44)
--- NOTE | 2022-06-18 15:51 | PC.NURSE ---
Discharge instructions reviewed with pt. Pt verbalizes understanding.
== END 2022-06-18 15:52 | disposition home or self-care (01) ==
PROVIDERS: Emergency Provider Emergency Medicine
DX: J10.1 Influenza due to other identified influenza virus with other respiratory manifestations (principal); R05.9 Cough, unspecified; R50.9 Fever, unspecified
CPT/HCPCS: 71046; 99284

== ENCOUNTER 2023-09-19 10:33 | Emergency (ER) | payer OTHER, SELFPAY ==
--- NOTE | ~2023-09-19 | CT_ITS ---
EXAMINATION: CT ABDOMEN AND PELVIS WITH CONTRAST CLINICAL INFORMATION: Right lower quadrant pain fever nausea vomiting COMPARISON: None available. TECHNIQUE: Multidetector volumetric images were obtained from the superior aspect of the liver through the pubic symphysis following administration 85 mL of Omnipaque 350 intravenous contrast. Sagittal and coronal reformatted images were obtained on the technologist's workstation. Oral contrast: No This CT examination was performed using dose optimization techniques as appropriate, variously including the following: *Automated exposure control *Adjustment of mA and/or kV according to patient size (this includes techniques or standardized protocols for targeted exams where dose is matched to indication/reason for exam; i.e. extremities or head) *Use of iterative reconstruction technique DLP: 281 mGy-cm FINDINGS: LUNG BASES: The visualized lung bases are unremarkable. LIVER, GALLBLADDER, AND BILIARY TREE: The liver is normal in size, shape, and attenuation. No focal hepatic lesion or biliary ductal dilatation is present. The gallbladder is unremarkable with no evidence of radiopaque gallstones, gallbladder wall thickening, or obvious pericholecystic inflammatory changes. PANCREAS: Unremarkable. SPLEEN: Unremarkable. ADRENAL GLANDS: Unremarkable. KIDNEYS AND URETERS: The kidneys are normal in size, shape, and attenuation. No hydronephrosis, hydroureter, or calculi seen. No perinephric stranding. BLADDER: Unremarkable. GASTROINTESTINAL TRACT: Appendix not clearly visualized. No inflammatory changes in the right lower quadrant. Large and small bowel unremarkable. Stomach normal. ABDOMINAL WALL: No significant hernia is appreciated. LYMPH NODES: Normal. VASCULAR: Unremarkable. PELVIC VISCERA: Unremarkable. OSSEOUS STRUCTURES: Unremarkable. CT/CT abdomen pelvis w IV con IMPRESSION: 1. No acute abnormality. 2. Appendix not clearly visualized. No inflammatory changes in the right lower quadrant. Fleischner guidelines were followed.
--- NOTE | ~2023-09-19 | XR_ITS ---
EXAMINATION: XR CHEST CLINICAL INFORMATION: Cough COMPARISON: Chest radiograph 06/18/2022 TECHNIQUE: Frontal view of the chest was obtained. FINDINGS: Clear lungs. No pleural effusion or pneumothorax. Cardiomediastinal silhouette is unchanged. XR/XR chest 1V IMPRESSION: No acute cardiopulmonary abnormality.
[2023-09-19 10:40] VITALS: BP 118/68; PULSE 113; O2SAT 99
[2023-09-19 10:41] VITALS: BP 112/54; PULSE 114; RESP 16; TEMP 37.6; O2SAT 95; BMI 21.0
[2023-09-19 10:56] LABS: MANUAL DIFF FLAG NO
[2023-09-19 10:57] LABS: Basophils Percent Auto 0.2 % (0-2); Eosinophils Percent Auto 0.1 % (0-4); Hematocrit 34.6 % (37.0-47.0); Hemoglobin 11.1 g/dl (12.0-16.0); Imm Gran Abs Auto 0.03 X10*3/uL (0.00-0.03); Imm Gran Pct Auto 0.3 % (0.0-0.4); Lymphocytes Absolute Auto 0.6 X10*3/uL (1.2-4.9); Lymphocytes Percent Auto 5.4 % (20-40); Mean Corpuscular HGB Conc 32.1 g/dl (31.0-35.0); Mean Corpuscular Hemoglobin 25.8 pg (27.0-33.0); Mean Corpuscular Volume 80.3 fL (80.0-98.0); Mean Platelet Volume 11.7 fL (9.4-12.3); Monocytes Absolute Auto 1.1 X10*3/uL (0.1-1.2); Monocytes Percent Auto 10.2 % (2-11); Neutrophils Percent Auto 83.8 % (45-73); Platelet Count 216 X10*3/uL (160-400); Red Blood Count 4.31 X10*6/uL (4.20-5.50); White Blood Count 10.7 X10*3/uL (4.8-10.8)
[2023-09-19 11:11] LABS: Alanine Aminotransferase 8 U/L (0-31); Albumin Level 4.1 g/dL (3.5-5.0); Alkaline Phosphatase 72 U/L (39-117); Anion Gap 14 (12-20); Aspartate Amino Transferase 22 U/L (5-31); Bilirubin Total 0.2 mg/dL (0.0-1.0); Blood Urea Nitrogen 8 mg/dL (9-16); Calcium 8.8 mg/dL (8.4-10.2); Carbon Dioxide 21 mmol/L (22-29); Chloride 103 mmol/L (96-108); Creatinine Clr Calc Pharmacy 93.5; Estimated Glomerular Filt Rate > 60; Glucose Random 113 mg/dL (60-115); Potassium 3.4 mmol/L (3.3-5.1); Sodium 135 mmol/L (135-145); Total Protein 6.8 g/dL (6.5-8.0)
--- NOTE | 2023-09-19 11:16 | ED_ITS ---
HPI - Abdominal Pain General Chief Complaint: Abdominal Pain Stated Complaint: FEVER,VOMITING,COUGH W/LRQ PAIN PER EMS Time Seen by Provider: 09/19/23 13:19 Source: patient Mode of arrival: ambulatory Limitations: no limitations History of Present Illness HPI narrative: 22 year old female hx of HSV presents w/ complaints of lower abdominal pain worse to the RLQ/ epigastric region with a/c nausea, vomiting, diarrhea X 2 days not improving. Patient reports that a close friend is sick w/ similar symptoms. Patient also reports that she has been having fevers she thinks as she has hot and cold sweats intermittently and chills. Does not think Related Data Previous Rx's Medication Instructions Recorded vitamin with calcium 1 tab PO DAILY #30 tabs 12/07/20 no.72-iron 27 mg-folic acid 1 mg tablet ( Vitamins Plus Low Iron) ondansetron HCl 4 mg tablet 4 mg PO Q8H PRN nausea and 02/19/21 (Zofran) vomiting #30 tabs blood sugar diagnostic (FreeStyle #100 ea 06/12/21 Lite Strips) blood-glucose meter (FreeStyle #1 ea 06/12/21 Lite Meter kit) lancets 28 gauge (FreeStyle #100 ea 06/12/21 Lancets) ferrous sulfate 324 mg (65 mg 324 mg PO TID #90 tabs 06/13/21 iron) tablet,delayed release amoxicillin 875 mg-potassium 1 tab PO Q12H 10 days #20 tabs 10/19/21 clavulanate 125 mg tablet ibuprofen 600 mg tablet 600 mg PO Q6H PRN pain #60 tabs 10/19/21 tramadol 50 mg tablet 50 mg PO Q8H PRN pain #14 tabs 10/20/21 acetaminophen 500 mg capsule 500 mg PO Q6H PRN fever or pain 06/14/22 #20 caps oseltamivir 75 mg capsule (Tamiflu) 75 mg PO Q12H 5 days #10 caps 06/14/22 albuterol sulfate 90 mcg/actuation 2 puff inhalation Q4-6H PRN 06/18/22 aerosol inhaler shortness of breath or wheezing #8.5 grams ondansetron 4 mg disintegrating 4 mg PO Q8H PRN nausea and 06/18/22 tablet vomiting 5 days #20 tabs vyxqsszxyukhg-GA-qxfiitbexhs 2.5 20 ml PO Q4H PRN cough #118 mL 06/18/22 mg-5 mg-50 mg/5 mL oral liquid (Robitussin Cough and Cold CF) albuterol sulfate 90 mcg/actuation 2 inh inhalation Q4-6H PRN 09/19/23 breath activated powder inhaler shortness of breath or wheezing #1 ea benzonatate 100 mg capsule 100 mg PO BID PRN cough #20 caps 09/19/23 nitrofurantoin 100 mg PO BID 5 days #10 caps 09/19/23 monohydrate/macrocrystals 100 mg capsule (Macrobid) ondansetron 4 mg disintegrating 4 mg PO Q6H PRN nausea and 09/19/23 tablet vomiting #14 tabs prednisone 20 mg tablet 40 mg (2 x 20 mg) PO DAILY 5 days 09/19/23 #10 tabs Allergies Allergy/AdvReac Type Severity Reaction Status Date / Time No Known Allergies Allergy Verified 10/19/21 16:37 Review of Systems Review of Systems Yes all other systems are reviewed and are negative [facility] Past Medical History Attestation statement: The following information was validated with the patient. Source: old records reviewed and nursing notes reviewed Medical History HSV (herpes simplex virus) anogenital infection Family History Family History Mother Hypertension Father High cholesterol Maternal Grandmother Diabetes Paternal Grandmother Alzheimers disease Diabetes Brother Sickle cell trait Brother Autism Social History Social History Household Members: Family Alcohol intake: never Patient Tobacco Use Status: Former Tobacco user Smoked in Last 30 Days: No Use of substances other than those prescribed or required for medical reasons: Yes Substance Use Type: Marijuana Advance Directives: No Advance Directives Information Provided: No Patient : No Gender identity: Female Physical Exam ED Vital Signs: Vital Signs - 24 hr 09/19/23 10:41 09/19/23 13:10 Temperature 99.6 F 99.5 F Pulse Rate 114 H 109 H Respiratory Rate 16 18 Blood Pressure 112/54 L 111/65 Pulse Oximetry 95 100 Oxygen Delivery Method Room Air Room Air BMI result Body Mass Index 21.0 Low-grade temperature 99.5 degrees and slight tachycardia likely secondary to viral illness. Appearance: Alert.? Oriented X3.? No acute distress.? Head: Normocephalic, atraumatic, no step-offs or deformities Eyes: Pupils equal, round and reactive to light.? ENT: Pharynx normal.? Neck: Normal inspection.? Neck supple.? CVS: Normal heart rate and rhythm.? Pulses normal.? Respiratory: No respiratory distress.? Breath sounds normal.? Abdomen: Soft and very mild lower abd discomfort > RLQ and subrpubic region. Skin: Skin warm and dry.? Normal skin color.? Normal skin turgor.? Extremities: No lower extremity edema.? No calf ttp. 5/5 strength to bilateral upper and lower extremities Neuro: Oriented X 3.? No motor deficit.? No sensory deficit. CN 2-12 intact Course Course Course Narrative: This is an RME: Additional HPI, ROS, PE not included below will be deferred to primary provider. Patient is a 22-year-old female who presents emergency department for evaluation of right lower quadrant abdominal pain, fever, vomiting, diarrhea x2 days. Reports recent ill contact. Plan: Labs, hCG, UA, viral testing Reevaluation(s) Reevaluation #1: CBC unremarkable. Chemistry no acute findings requiring intervention. Beta hCG negative. Normal lipase. Influenza, COVID and RSV negative. UA concerning for possible infection. Will treat as she does have lower abdominal pain. CT abdomen chest x-ray pending. Time: 14:27 Reevaluation #2: Chest x-ray unremarkable. CT abdomen pelvis no acute abnormality. Appendix not clearly visualized however no inflammatory changes associated. Will discharge with prednisone, benzonatate, albuterol. This is likely viral. Will also send Zofran for nausea and vomiting Educated patient on diagnosis and treatment plan, answered all question, patient verbalizes understanding. At this time patient will be discharged home, advised to return with new or worsening symptoms. Educated on worrisome signs and symptoms and when to return. At this time I feel comfortable discharge home. Time: 15:39 Reevaluation #3: Tollerating po at time of dc Medical Decision Making Medical Decision Making MDM Narrative: 22-year-old female presents with complaints of right lower quadrant abdominal pain with associated nausea, vomiting, diarrhea subjective fevers and chills for the past 2 days On exam very mild tenderness lower abd region. History and physical exam concerning for viral illness. Will rule out appendicitis although less likely. Unlikely cholecystitis, pancreatitis, obstruction, diverticulitis, acute abdomen will rule out metabolic derangements and urinary infection Plan at this time labs, imaging, urine, viral test Differential Diagnosis Differential Diagnoses: The differential diagnosis associated with the presentation includes History and physical exam concerning for viral illness. Will rule out appendicitis although less likely. Unlikely cholecystitis, pancreatitis, obstruction, diverticulitis, acute abdomen will rule out metabolic derangements and urinary infection Admission/Observation Consideration of admission/observation: Escalation of care including admission/observation considered Unlikely Lab Data MDM Lab Attestation statement: I reviewed the patient's lab results. 09/19/23 10:49 09/19/23 10:49 Labs: Lab Results 09/19/23 09/19/23 09/19/23 Range/Units 10:46 10:49 13:10 WBC 10.7 (4.8-10.8) X10*3/uL RBC 4.31 D (4.20-5.50) X10*6/uL Hgb 11.1 L (12.0-16.0) g/dl Hct 34.6 L (37.0-47.0) % MCV 80.3 (80.0-98.0) fL MCH 25.8 L (27.0-33.0) pg MCHC 32.1 (31.0-35.0) g/dl RDW 17.0 H (11.0-16.0) % Plt Count 216 (160-400) X10*3/uL MPV 11.7 (9.4-12.3) fL Immature Gran % (Auto) 0.3 (0.0-0.4) % Neut % (Auto) 83.8 H (45-73) % Lymph % (Auto) 5.4 L (20-40) % [place] % (Auto) 10.2 (2-11) % Eos % (Auto) 0.1 (0-4) % Baso % (Auto) 0.2 (0-2) % Lymph # (Auto) 0.6 L (1.2-4.9) X10*3/uL [place] # (Auto) 1.1 (0.1-1.2) X10*3/uL Eos # (Auto) 0.0 (0.0-0.4) X10*3/uL Baso # (Auto) 0.0 (0.0-0.2) X10*3/uL Abs Immat Gran (auto) 0.03 (0.00-0.03) X10*3/uL Absolute Neuts (auto) 9.0 H (2.0-8.3) x10*3/uL Absolute Nucleated RBC 0.000 (0.0-0.012) X10*3/uL Nucleated RBC % (auto) 0.0 (0.0-0.2) /100WBC Sodium 135 (135-145) mmol/L Potassium 3.4 (3.3-5.1) mmol/L Chloride 103 (96-108) mmol/L Carbon Dioxide 21 L (22-29) mmol/L Anion Gap 14 (12-20) BUN 8 L (9-16) mg/dL Creatinine 0.74 (0.5-1.4) mg/dL Estim Creat Clear Calc 93.5 Estimated GFR > 60 Random Glucose 113 (60-115) mg/dL Calcium 8.8 (8.4-10.2) mg/dL Total Bilirubin 0.2 (0.0-1.0) mg/dL AST 22 (5-31) U/L ALT 8 (0-31) U/L Alkaline Phosphatase 72 (39-117) U/L Total Protein 6.8 (6.5-8.0) g/dL Albumin 4.1 (3.5-5.0) g/dL Lipase 7 L (8-78) U/L Beta HCG, Quant < 2 mIU/mL Urine Color Yellow Urine Appearance Cloudy Urine pH 6.0 (5.0-9.0) Ur Specific [place] 1.020 (1.005-1.025) Urine Protein Trace (Neg-Trace) mg/dL Urine Glucose (UA) Negative (Negative) mg/dL Urine Ketones 40 (Negative) mg/dL Urine Blood Negative (Negative) Urine Nitrite Negative (Negative) Ur Leukocyte Esterase Small (1+) H (Negative) Urine RBC 0-2 (0-2) /HPF Urine WBC 6-10 H (0-5) /HPF Ur Squamous Epith Cells 11-20 (0-2) /HPF Urine Bacteria 2+ (None Seen) Hyaline Casts 0-2 (0-2) /LPF Influenza Type A (PCR) NEGATIVE (Negative) Influenza Type B (PCR) NEGATIVE (Negative) RSV RNA Qual (PCR) NEGATIVE (Negative) SARS-CoV-2 RNA (RT-PCR) NEGATIVE (Negative) Independent Interpretation I performed an independent interpretation of an: CT Scan Radiology Impression Discussion of test interpretation with radiology: I have reviewed the radiologist's reading. Medications Administered Discontinued Medications Generic Name Dose Route Start Last Admin Trade Name Freq PRN Reason Stop Dose Admin Iohexol 100 ml 09/19/23 14:02 09/19/23 14:02 Iohexol 350 Mg/Ml 100 Ml Infus..Btl IV 09/19/23 14:03 85 ml ONCE ONE Administration Critical Care Time Critical Care Time Critical Care Time: No Discharge Plan Discharge Clinical Impression: Abdominal pain, Nausea & vomiting, Diarrhea, UTI (urinary tract infection) Patient Disposition: Home, Self-Care Instructions: Urinary Tract Infection in Women (ED), Acute Nausea and Vomiting (ED), Acute Diarrhea (ED), Abdominal Pain (ED) Additional Instructions: Take your medications as prescribed. If you were prescribed antibiotics today, it is important that you take your medication to their entirety, do not skip any doses, do not finish them early. Follow-up with your primary care provider this week. Return to the emergency department with new or worsening symptoms. Such as fevers, chills, chest pain, shortness of breath, nausea, vomiting, dizziness, headache, vision changes, lethargy In case of emergency call [address] scan did not show any signs of appendicitis, if you have worsening pain particularly to the right lower quadrant as well as nausea, vomiting and inability to tolerate p.o. or fevers and chills or any new or worsening symptoms please return for evaluation. Do not ignore it. Zofran has been sent for nausea and vomiting. Benzonatate, albuterol and prednisone sent for upper respiratory symptoms. Please take these as prescribed CT/CT abdomen pelvis w IV con IMPRESSION: 1. No acute abnormality. 2. Appendix not clearly visualized. No inflammatory changes in the right lower quadrant. Prescriptions: New albuterol sulfate 90 mcg/actuation aerosol powdr breath activated 2 inh inhalation Q4-6H PRN (Reason: shortness of breath or wheezing) Qty: 1 0RF benzonatate 100 mg capsule 100 mg PO BID PRN (Reason: cough) Qty: 20 0RF prednisone 20 mg tablet 40 mg PO DAILY 5 Days Qty: 10 0RF ondansetron 4 mg tablet,disintegrating 4 mg PO Q6H PRN (Reason: nausea and vomiting) Qty: 14 0RF nitrofurantoin monohyd/m-cryst [Macrobid] 100 mg capsule 100 mg PO BID 5 Days Qty: 10 0RF Rx Instructions: must administer with a meal/food No Action (DME) blood-glucose meter [FreeStyle Lite Meter] Kit See Rx Instructions miscellaneous .MEDSUPPLY Qty: 1 0RF Rx Instructions: As directed QID (DME) FreeStyle Lite Strips Strip See Rx Instructions .MEDSUPPLY Qty: 100 1RF Rx Instructions: As directed QID x 30d (DME) lancets [FreeStyle Lancets] 28 gauge misc See Rx Instructions .MEDSUPPLY Qty: 100 1RF Rx Instructions: As directed QID x30d ferrous sulfate 324 mg (65 mg iron) tablet,delayed release (DR/EC) 324 mg PO TID Qty: 90 2RF amoxicillin-pot clavulanate 875-125 mg tablet 1 tab PO Q12H 10 Days Qty: 20 0RF ibuprofen 600 mg tablet 600 mg PO Q6H PRN (Reason: pain) Qty: 60 0RF tramadol 50 mg tablet 50 mg PO Q8H PRN (Reason: pain) Qty: 14 0RF Rx Instructions: May partially fill upon patient request oseltamivir [Tamiflu] 75 mg capsule 75 mg PO Q12H 5 Days Qty: 10 0RF acetaminophen 500 mg capsule 500 mg PO Q6H PRN (Reason: fever or pain) Qty: 20 0RF ondansetron 4 mg tablet,disintegrating 4 mg PO Q8H PRN (Reason: nausea and vomiting) 5 Days Qty: 20 0RF Robitussin Cough and Cold CF 2.5-5-50 mg/5 mL liquid 20 ml PO Q4H PRN (Reason: cough) Qty: 118 0RF albuterol sulfate 90 mcg/actuation HFA aerosol inhaler 2 puff inhalation Q4-6H PRN (Reason: shortness of breath or wheezing) Qty: 8.5 0RF Vitamin Plus Low Iron 27 mg iron- 1 mg tablet 1 tab PO DAILY Qty: 30 11RF ondansetron HCl [Zofran] 4 mg tablet 4 mg PO Q8H PRN (Reason: nausea and vomiting) Qty: 30 1RF Referrals: Physician,None [Primary Care Provider] - 3 days
[2023-09-19 11:36] LABS: Influenza A PCR NEGATIVE (Negative); Influenza B PCR NEGATIVE (Negative); Resp Syncy Virus RNA Qual PCR NEGATIVE (Negative); SARS COV2 PCR INHOUSE NEGATIVE (Negative)
[2023-09-19 11:43] LABS: Lipase 7 U/L (8-78)
[2023-09-19 11:54] LABS: HCG Quantitative < 2 mIU/mL
[2023-09-19 13:10] VITALS: BP 111/65; PULSE 109; RESP 18; TEMP 37.5; O2SAT 100
[2023-09-19 13:19] LABS: Appearance Urine Cloudy; Color Urine Yellow; Glucose Urine UA Negative (Negative); Leukocyte Esterase Urine Small (1+) (Negative); Nitrite Urine Negative (Negative); UMIC TRIGGER UACC YES; Urine Blood Negative (Negative); Urine Ketones 40 mg/dL (Negative); Urine Protein Trace mg/dL (Neg-Trace)
[2023-09-19 13:21] LABS: Bacteria Urine 2+ (None Seen); Hyaline Casts Urine 0-2 /LPF (0-2); RBC Urine 0-2 /HPF (0-2); UACC Culture Trigger YES
--- NOTE | 2023-09-19 13:26 | PC.NURSE ---
pt a&ox4, tachycardic, other vss, pt reporting 10/10 generalized body aches, fevers, chills, nausea, vomiting, diarrhea x 3 day - family friend sick w similar sx. urine sample obtained and sent to lab. pt pending ED provider, no new orders at this time.
[2023-09-19] MEDS: iohexoL 350 MG/ML 100 ML INFUS..BTL IV (14:02)
[2023-09-19 16:00] VITALS: BP 110/64; PULSE 68; RESP 16; TEMP 36.6; O2SAT 98
[2023-09-19] MEDS: ondansetron HCL 4 MG/2 ML VIAL IVPUSH (16:04)
[2023-09-19] MEDS: Acetaminophen 325 MG TABLET 975 MG PO (16:04)
== END 2023-09-19 16:24 | disposition home or self-care (01) ==
PROVIDERS: Nurse Practitioner Family; Emergency Provider Emergency Medicine
DX: N39.0 Urinary tract infection, site not specified (principal); R11.2 Nausea with vomiting, unspecified; R19.7 Diarrhea, unspecified; R50.9 Fever, unspecified; R10.31 Right lower quadrant pain; Z11.52 Encounter for screening for COVID-19; Z20.828 Contact with and (suspected) exposure to other viral communicable diseases
CPT/HCPCS: 0241U; 71045; 74177; 80053; 81001; 83690; 84702; 85025; 87086; 96374; 99284; 99285; J2405; Q9967

== ENCOUNTER 2023-10-06 10:28 | Outpatient (REF) | payer OTHER, SELFPAY | END 2023-10-06 10:29 | disposition home or self-care (01) | LOC: HO.LNP 10:28 | PROVIDERS: Visit Provider Advanced Practice Midwife | DX: Z11.3 Encounter for screening for infections with a predominantly sexual mode of transmission (principal); A60.9 Anogenital herpesviral infection, unspecified | CPT/HCPCS: 99212 ==

== ENCOUNTER 2023-10-06 10:28 | Outpatient (AMB) | payer OTHER, SELFPAY ==
[2023-10-06 10:29] VITALS: BP 98/62; BMI 20.8
--- NOTE | 2023-10-06 10:29 | A.OFFVIS_ITS ---
Intake Vital Signs 10/06/23 10:29 Height 5 ft 2 in Weight 114 lb BMI 20.8 BP 98/62 Intake Visit Reasons: std testing Intake Note: Would like std testing swabs and labs. Software Applications Architect Required: No Information Interpreted: non-clinical & clinical Software Deployment Engineer: Software Deployment Engineer Present (Chandana) Allergies No Known Allergies Allergy (Verified 10/06/23 10:31) Medication List - Last Reconciled 10/06/23 by Tamra Truong CNM acetaminophen 500 mg PO Q6H PRN ferrous sulfate 324 mg PO TID ibuprofen 600 mg PO Q6H PRN Is last menstrual period known: Yes Last menstrual period: 09/21/23 Post menopausal: No HPI std testing HPI Details Patient is here could she wants to get tested for STDs including blood work. She is at the moment a little bit abstinent so does not need control but might again in the future. She had her last Pap smear December of 2020 and will be due this December for her annual exam and Pap She says she has not had a primary care provider since 2015 she is just come to the midwives when she had her pregnancies so she is looking for a primary care provider and will check in the front for names of PCCs. She tries to eat well for the most part she is trying to take care of herself for the most part she says she does smoke but she is trying to cut back and it has twice a day,( weEd and tobacco mixed.). She gets occasional herpes outbreaks often towards the tail end of her. When she has wearing a pad and she gets itchy and bothered and she can always identify when it is HSV. She has run out of Valtrex but would like a prescription. She had a recent upper respiratory issue for which she went to the emergency room and they also saw that she had a UTI and treated her for that as well. She is fine now. [facility] Medical History HSV (herpes simplex virus) anogenital infection Family History Mother Hypertension Father High cholesterol Maternal Grandmother Diabetes Paternal Grandmother Alzheimers disease Diabetes Brother Sickle cell trait Brother Autism Social History Household Members: Family Both parents involved: No Alcohol intake: never Patient Tobacco Use Status: Former Tobacco user Substance Use Type: Marijuana Gender identity: Female Female Reproductive History Menstrual Age of Menarche: 11 Duration of menses: 6-7 days Date of last menstrual period: 09/21/23 control method: none Total pregnancies: 3 Full term: 2 Number of Living Children: 2 Ab induced: 1 Date of last pap smear: 01/02/21 (negative) History of abnormal pap smear: No Physical Exam Vital Signs: Last Vital Signs BP 98/62 10/06/23 10:29 BMI result Body Mass Index 20.8 Other: Speculum exam within normal limits vaginal discharge appears very clear and healthy. Cervix pink smooth multiparous very anterior uterus small mobile nontender very retroverted. Good tone with Kegel External Female Exam: normal external appearance Speculum Exam - Vagina: normal appearance of the vagina and normal vaginal discharge Speculum Exam - Cervix: normal appearance of the cervix Bimanual exam- vagina & uterus: normal bimanual exam, uterine size normal, consistency normal, uterine mobility normal, uterine shape normal and non-tender Bimanual Exam- Adnexa, other: normal adnexae, no masses and No adnexal tenderness Results Reviewed Results Reviewed: Name: Singleton,Rkgutierrez Freitas Age/Sex: 20/F Attending: Thuy Aguilera CNM : 2000 Submitted by: Thuy Aguilera CNM Copies to: Natalee Lopes MD MR #: [id number] Status: DEP REF Collected: 01/01/21 Location: .LAB Received: 01/02/21 Interpretation Satisfactory for evaluation. No endocervical cells seen. Negative for intraepithelial lesion or malignancy. Moderate inflammation. Fungal organisms consistent with Enedina species. Clinical Information LMP: Previous PAP test: No previous PAP Material Received ThinPrep Cervical Copies To Thuy Aguilera[address] Guzman [address] [place] [id number] Natalee Lopes MD [address] [facility] [place] [address] Electronically Signed By: Ashley Ferrer 01/09/21 8050 The Pap Test is a screening procedure with the inherent possibility of both false negative and false positive results. Results should be interpreted in the context of historic and current clinical findings. Reliability of the Pap Test is enhanced by performing the test on a regular repetitive basis. Patient: Renetta Singleton Page 1 of 1 Assessment & Plan Assessment & Plan (1) HSV (herpes simplex virus) anogenital infection: Comment: History of--- gets occasional outbreaks sometimes with pad irritation will Rx Valtrex for episodic use she has run out. Code(s): A60.9 - Anogenital herpesviral infection, unspecified (2) Encounter for screening examination for sexually transmitted disease: Code(s): Z11.3 - Encounter for screening for infections with a predominantly sexual mode of transmission Plan Testing ordered as requested reminded that she is due for her Pap smear in December and she can set up her annual exam as she leaves. She will check with the front maker lockstitch for names of primary care practices. Reviewed primary care of trying to eat well take care of herself and cut down on smoking of all substances and she is already working on that. I offered a prescription for Valtrex for her so that she can take it for 3-5 days as she needs it for an outbreak. Discussed why pad use can contribute to herpes outbreaks because of the physical irritation on the perineum. She also notes that is if she is stressed out that sometimes precipitates an outbreak but they do not come too often. Reviewed normalcy of having a retroverted uterus and how it sometimes can feel. Orders: Orders Hepatitis C Antibody Today A60.9 - Anogenital herpesviral infection, unspecified, Z11.3 - Encounter for screening for infections with a predominantly sexual mode of transmission Syphilis Screen Today A60.9 - Anogenital herpesviral infection, unspecified, Z11.3 - Encounter for screening for infections with a predominantly sexual mode of transmission Hepatitis B Surface Antigen Today A60.9 - Anogenital herpesviral infection, unspecified, Z11.3 - Encounter for screening for infections with a predominantly sexual mode of transmission HIV Ab/Ag Today A60.9 - Anogenital herpesviral infection, unspecified, Z11.3 - Encounter for screening for infections with a predominantly sexual mode of transmission Medications: New valacyclovir Take daily for 3-5 days for episodic outbreaks of HSV. 1,000 mg PO DAILY PRN 30 tabs 0RF For episodic outbreaks Coding Level of Care Code Est Pt Level 3 (32553) Diagnoses HSV (herpes simplex virus) anogenital infection A60.9 Encounter for screening examination for sexually transmitted disease Z11.3
== END 2023-10-06 11:04 | disposition home or self-care (01) ==
LOC: HO.HWSM 10:28
PROVIDERS: Visit Provider Advanced Practice Midwife
DX: A60.9 Anogenital herpesviral infection, unspecified (principal); Z11.3 Encounter for screening for infections with a predominantly sexual mode of transmission
CPT/HCPCS: 99213

== ENCOUNTER 2023-10-06 12:55 | Outpatient (REF) | payer OTHER, SELFPAY ==
[2023-10-07 04:21] LABS: Syphilis Screen Nonreactive (Nonreactive)
[2023-10-07 04:54] LABS: HBsAGNum1 0.38 S/CO (0.00-0.99); HIV AB/AG Nonreactive (Nonreactive); HIV Num 1 0.05 S/CO (0.00-0.99); Hepatitis B Surface Antigen Negative (Negative); ~HepC Num1 0.09 S/CO (0.00-0.79); ~Hepatitis C Antibody Nonreactive (Nonreactive)
[2023-10-07 06:07] LABS: CT PCR NOT DETECTED (Not Detect.); NG PCR NOT DETECTED (Not Detect.)
[2023-10-07 13:36] LABS: BV Int Neg Control Negative (Negative); BV Int Pos Control Positive (Positive)
== END 2023-10-06 12:56 | disposition home or self-care (01) ==
LOC: HO.HHCL 12:55
PROVIDERS: Visit Provider Advanced Practice Midwife
DX: Z11.3 Encounter for screening for infections with a predominantly sexual mode of transmission (principal); A60.9 Anogenital herpesviral infection, unspecified
CPT/HCPCS: 0353U; 86780; 86803; 87340; 87389; 87480; 87510; 87660

== ENCOUNTER 2024-11-10 13:52 | Outpatient (REF) | payer OTHER, SELFPAY ==
--- OUTSIDE RECORDS SUMMARY | 2024-11-10 17:42 | XMS_ITS | Encounter Summary ---
Author Organization [facility] Address [address] [place] [address] Phone Care Team Providers Care Manager Exchange Name Role Phone Natalee Lopes MD Primary Care Provider [phone] Encounter Details Date Type Department Care Team ([facility] Contact Info) Description 03/12/2017 Conversion Encounter [facility] [place] [address] [place] [address] Social History Tobacco Use Types Packs/Day Years [...] on filedocumented in this encounter Care Teams Manager Exchange Relationship Specialty Start Date End Date Natalee Lopes MD [address] [place] [address] PCP - General 03/06/17 10/08/22 documented as of this encounter
--- OUTSIDE RECORDS SUMMARY | 2024-11-10 17:42 | XMS_ITS | Clinical Summary ---
Author Organization [facility] Address [address] [place] [address] Phone Care Team Providers Care Subscription Agent Name Role Phone Unavailable Primary Care Provider [...] CVA (Stroke), No family history of Sudden /[place] under age 55 Social History Tobacco Use [...] patient's age to complete this topic Insurance [facility] NON PCC [facility] PPO
--- OUTSIDE RECORDS SUMMARY | 2024-11-10 17:42 | XMS_ITS | Encounter Summary ---
Author Organization [facility] Address [address] [place] [address] Phone Care Team Providers Care Car Sales Consultant Name Role Phone Natalee Lopes MD Primary Care Provider [phone] Encounter Details Date Type Department Care Team (Late st Contact Info) Description 04/01/2012 Documentation [facility] [place] Family Medicine [address] [place] [address] Family Medicine, Physician [address] [place], [place] [id number] Social History Tobacco Use Types Packs/Day Years [...] on filedocumented in this encounter Care Teams Car Sales Consultant Relationship Specialty Start Date End Date Natalee Lopes MD [address] [place] [address] MADISYN Rivas [id number] PCP - General 03/06/17 10/08/22 documented as of this encounter
--- OUTSIDE RECORDS SUMMARY | 2024-11-10 17:42 | XMS_ITS | Clinical Summary ---
Author Organization [facility] it Address [address] [place] [address] Care Team Providers Care Ironer Name Role Phone Dany Silva MD Primary Care Provider [phone] Social History Tobacco Use Types Packs/Day Years [...] age to complete this topic Care Teams Ironer Relationship Specialty Start Date End Date Dany Silva MD [address] [place] [id number] PCP - General Internal Medicine 07/11/21
== END 2024-11-10 13:53 | disposition home or self-care (01) ==
LOC: HO.LAB 13:52
PROVIDERS: Visit Provider Advanced Practice Midwife
DX: R35.0 Frequency of micturition (principal); B37.31 Acute candidiasis of vulva and vagina; A60.9 Anogenital herpesviral infection, unspecified; Z11.3 Encounter for screening for infections with a predominantly sexual mode of transmission
CPT/HCPCS: 99212

== ENCOUNTER 2024-11-10 13:52 | Outpatient (AMB) | payer OTHER, SELFPAY ==
[2024-11-10 14:08] VITALS: BP 112/60; BMI 19.2
--- NOTE | 2024-11-10 14:08 | MHC.OFFVIS ---
Vital Signs 11/10/24 14:08 Height 5 ft 2 in Weight 105 lb BMI 19.2 BP 112/60 Intake Visit Reasons: vaginitis Atm Manager Required: No Atm Manager Services: Atm Manager Present Information Interpreted: clinical only Agitator Operator: Agitator Operator Present Allergies No Known Allergies Allergy (Verified 11/10/24 14:08) Medication List - Last Reconciled 11/10/24 by Tamra Truong CNM valacyclovir 1,000 mg PO DAILY PRN Is last menstrual period known: Yes Last menstrual period: 10/20/24 HPI HPI vaginitis: Details: Patient is here to get checked she has been having an abnormal discharge that is itchy and then sometimes has a smell and it has been going on for a while and in in addition to that it is sometimes feels like she will urinate then feels like she still has to urinate. And this been going on while to periods her last periods started on and it lasted for 7 days. Sometimes she feels like after she urinates she still has to go back in urinate but not much comes out. She was last sexually active in July she did take a plan B then. She is not planning on being active any time soon and did not particularly want to talk about control today. [facility] [place] Medical History HSV (herpes simplex virus) anogenital infection Family History Mother Hypertension Father High cholesterol Maternal Grandmother Diabetes Paternal Grandmother Alzheimers disease Diabetes Brother Sickle cell trait Brother Autism Social History Household Members: Family Alcohol intake: never Patient Tobacco Use Status: Former Tobacco user Substance Use Type: Marijuana Gender identity: Female Female Reproductive History Menstrual Age of Menarche: 11 Duration of menses: 3-5 days Date of last menstrual period: 10/20/24 control method: none Total pregnancies: 2 Full term: 2 Date of last pap smear: 01/02/21 (negative) History of abnormal pap smear: No Physical Exam Vital Signs: Last Vital Signs BP 112/60 11/10/24 14:08 BMI result Body Mass Index 19.2 Other: Gmat Tutor exam detail. Vulva slightly pink vagina slightly pink curdy white greenish yellow discharge which is completely consistent with yeast. Cultures/testing done for gonorrhea chlamydia trichomoniasis yeast and BV. Cervix anterior points upward mobile nontender uterus small nontender adnexa nontender. No tenderness at bladder. External Female Exam: normal external appearance Speculum Exam - Vagina: normal appearance of the vagina and normal vaginal discharge Speculum Exam - Cervix: normal appearance of the cervix Bimanual exam- vagina & uterus: normal bimanual exam, uterine size normal, consistency normal, uterine mobility normal, uterine shape normal and non-tender Bimanual Exam- Adnexa, other: normal adnexae, no masses and No adnexal tenderness Assessment & Plan Assessment & Plan (1) Urinary frequency: Comment: If she is able to submit adequate urinary specimen treat with Bactrim for 3 days patient to call for results Thursday. Additionally recommend increased water and unsweetened cranberry juice Code(s): R35.0 - Frequency of micturition Category: Medical (2) Yeast infection of the vagina: Code(s): B37.31 - Acute candidiasis of vulva and vagina Category: Medical (3) HSV (herpes simplex virus) anogenital infection: Comment: History of--- gets occasional outbreaks sometimes with pad irritation will Rx Valtrex for episodic use she has run out. Code(s): A60.9 - Anogenital herpesviral infection, unspecified Category: Medical (4) Encounter for screening examination for sexually transmitted disease: Code(s): Z11.3 - Encounter for screening for infections with a predominantly sexual mode of transmission Category: Medical Plan Testing done for gonorrhea chlamydia trichomoniasis yeast and bacterial vaginosis discussed the yeast and bacterial vaginosis her common in our vagina is and multiply under certain circumstances. In her case this is very obviously a yeast infection but I am going to cover her for possible urinary tract infection as well the office is closed on Thursday so even if she submit a urine specimen now the results would not be available until Thursday or Thursday so I am going to treat her for presumptive urinary tract infection now with Bactrim DS b.i.d. for days. Additionally I recommend she try some unsweetened cranberry juice discussed the challenge of fructose corn syrup inn other juices. She prefers pill for the yeast infection. Also I am refilling her valacyclovir in case she needs that though she has no evidence of the lesion at this time she just is a little bit pink at her vulva where she was scratching. Orders: Orders CT NG by PCR Today N89.8 - Other specified noninflammatory disorders of vagina, Z20.2 - Contact with and (suspected) exposure to infections with a predominantly sexual mode of transmission Bacterial Vaginosis Panel Today N89.8 - Other specified noninflammatory disorders of vagina Medications: New sulfamethoxazole-trimethoprim 800-160 mg (Bactrim DS) Start medication after urine test submitted, take every 12 hours/(twice a day) for 3 days 1 tab PO Q12H 6 tabs 0RF fluconazole may repeat second dose 72 hrs after first dose if symptoms persist 150 mg PO Q3D 2 doses 2 tabs 0RF Refilled valacyclovir Take daily for 3-5 days for episodic outbreaks of HSV. 1,000 mg PO DAILY PRN 30 tabs 0RF For episodic outbreaks Coding Level of Care Code Est Pt Level 3 (36107) Diagnoses Urinary frequency R35.0 Yeast infection of the vagina B37.31 HSV (herpes simplex virus) anogenital infection A60.9 Encounter for screening examination for sexually transmitted disease Z11.3
--- OUTSIDE RECORDS SUMMARY | 2024-11-10 16:57 | XMS_ITS | Clinical Summary ---
Author Organization [facility] Address [address] [place] [address] Phone Care Team Providers Care Hook And Eye Sewing Machine Operator Name Role Phone Unavailable Primary Care Provider Unavailabl e Immunizations Immunization Administration Dates Next Due DTaP 5 01/28/2005, 1,05/29/2000,03/23,01/13/2000 HPV, Quadrivalent 05/31/2013,01/28/2013,04/23/20 11 Hep A, ped/adol 04/09/2015,03/30/2014 Hep B, ped/adol 05/29/2000,01/13/2000,1999 Hib (PRP-T) 02/11/2001, 0,03/23/2000,01/12 IPV 01/28/2005, 1,03/23/2000,01/12 Influenza Split 03/19/2010 Influenza, injectable, quadr ivalent, preservative free 05/09/2016,04/09/2015,03/30/2014 Influenza, intranasal, trivalent 04/17/2011 MMR 01/01/2004,2000 Meningococcal Conj (Menactra) MCV4P 05/09/2016,0 04/23/2011 Pneumococcal Conjugate 05/24/2001,2000,05/29/2000,03/23 Tdap 04/23/2011 Varicella 11/19/2007,2000 Family History Relation Name Status Comments Father Alive Father: Hyperli pidemia, Scoliosis Other Family history of Heart disease, No family history of Thrombophilia, No family history of CVA (Stroke), No family history of Sudden /[place] under age 55 Social History Tobacco Use Types Packs/Day Years Used Date Smoking Tobacco: Never Comments:Never smoker Comments Unknown Sex and Gender Information Value Date Recorded Sex Assigned at Not on file Legal Sex Female 4:59 PM EDT Gender Identity Not on file Sexual Orientation Not on file Last Filed Vital Signs Vital Sign Reading Time Taken Comments Blood Pressure 111/63 05/09/2016 12:00 AM EDT Pulse 81 05/09/2016 12:00 AM EDT Temperature 36.2 ??C (97.1 ??F) 05/09/2016 12:00 AM E DT Respiratory Rate - - Oxygen Saturation - - Inhaled Oxygen Concentration - - Weight 48.1 kg (106 lb) 05/09/2016 12:00 AM EDT Height 158.1 cm (5' 2.25 ) 05/09/2016 12:00 AM E DT Body Mass Index 19.23 05/09/2016 12:00 AM EDT Plan of Treatment Health Maintenance Due Date Last Done Comments DTaP,Tdap,and Td Vaccines (7 - Td or Tdap) 04/23/2021 04/23/2011, 01/28/2005, 05/24/2001, Additional history exists Influenza Vaccines (#1) 2024 05/09/20 16, 04/09/2015, 03/30/2014, Additional history exists COVID-19 Vaccine ( season) 2024 Hepatitis B Vaccines Completed 05/29/2000, 01/13/2000, 1999 HIB Vaccines Completed 02/11/2001, 09/1999, 03/23/2000, Additional history exists Pneumococcal Vaccine Completed 05/24/2001, 08/12/2000, 05/29/2000, Additional history exists MMR Vaccines Completed 01/01/2004, 2000 IPV Vaccines Completed 01/28/2005, 01/24, 03/23/2000, Additional history exists Varicella Vaccines Completed 11/19/2007, 2000 HPV Vaccines Completed 05/31/2013, 11/2012, 04/23/2011 Hepatitis A Vaccines Completed 04/09/2015, 03/30/20 14 Meningococcal Vaccine Completed 05/09/2016, 011 Men B Vaccine Aged Out No longer christos bolanos based on patient's age to complete this topic Insurance [facility] NON PCC [facility] PPO
--- OUTSIDE RECORDS SUMMARY | 2024-11-10 16:57 | XMS_ITS | Encounter Summary ---
Author Organization [facility] Address [address] [place] [address] Phone Care Team Providers Care Mold Making Supervisor Name Role Phone Natalee Lopes MD Primary Care Provider [phone] Encounter Details Date Type Department Care Team (Late st Contact Info) Description 04/01/2012 Documentation [facility] [place] Family Medicine [address] [place] [address] Family Medicine, Physician [address] [place], [place] [id number] Social History Tobacco Use Types Packs/Day Years Used Date Smoking Tobacco: Never Assessed Comments Unknown Sex and Gender Information Value Date Recorded Sex Assigned at Not on file Legal Sex Female 4:59 PM EDT Gender Identity Not on file Sexual Orientation Not on file documented as of this encounter Plan of Treatment Not on file documented as of this encounter Visit Diagnoses Not on filedocumented in this encounter Care Teams Mold Making Supervisor Relationship Specialty Start Date End Date Natalee Lopes MD [address] [place] [address] MADISYN Rivas [id number] PCP - General 03/06/17 10/08/22 documented as of this encounter
--- OUTSIDE RECORDS SUMMARY | 2024-11-10 16:57 | XMS_ITS | Encounter Summary ---
Author Organization [facility] Address [address] [place] [address] Phone Care Team Providers Care Color Stripper Name Role Phone Natalee Lopes MD Primary Care Provider [phone] Encounter Details Date Type Department Care Team ([facility] Contact Info) Description 03/12/2017 Conversion Encounter [facility] [place] [address] [place] [address] Social History Tobacco Use Types Packs/Day Years [...] on filedocumented in this encounter Care Teams Color Stripper Relationship Specialty Start Date End Date Natalee Lopes MD [address] [place] [address] PCP - General 03/06/17 10/08/22 documented as of this encounter
--- OUTSIDE RECORDS SUMMARY | 2024-11-10 16:57 | XMS_ITS | Clinical Summary ---
Author Organization [facility] Address [address] [place] [address] Care Team Providers Care Retort Forker Name Role Phone Dany Silva MD Primary Care Provider [phone] Social History Tobacco Use Types Packs/Day Years Used Date Smoking Tobacco: Never Assessed Comments Unknown Sex and Gender Information Value Date Recorded Sex Assigned at Not on file Legal Sex Female 2:11 PM EST Gender Identity Not on file Sexual Orientation Not on file Obstetrics History Plan of Treatment Health Maintenance Due Date Last Done Comments Gonorrhea/Chlamydia Screening 1999 HPV Vaccines (1 - 3-dose series) 11/10/2014 DTaP,Tdap,and Td Vaccines (1 - Tdap) 11/10/2018 Hepatitis B Vaccines (1 of 3 - 19+ 3-dose series) 11/10/2018 Cervical Cancer Screening: P ap Smear 11/10/2020 Depression Screening 06/25/2022 HIV Screening 06/25/2022 Hepatitis C Screening 06/25/2022 Social Influencers of Health Screening 06/25/2022 COVID-19 Vaccine ( - 2023-2 5 season) 2024 Influenza Vaccine (Season Ended) 2025 Varicella Vaccines Aged Out 07/11/2021 No longer eligible based on patient's age to complete this topic HIB Vaccines Aged Out No longer eligi ble based on patient's age to complete this topic Hepatitis A Vaccines Aged Out No long er eligible based on patient's age to complete this topic IPV Vaccines Aged Out No longer eligi ble based on patient's age to complete this topic MMR Vaccines Aged Out No longer eligi ble based on patient's age to complete this topic Meningococcal ACWY Vaccine Aged Out N o longer eligible based on patient's age to complete this topic Meningococcal B Vaccine Aged Out No l onger eligible based on patient's age to complete this topic Pneumococcal Vaccine: Pediat rics (0 to 5 Years) and At-Risk Patients (6 to 64 Years) Aged Out No longer eligi ble based on patient's age to complete this topic RSV Immunization Patients Un lorenzo 20 months Aged Out No longer eligible b ased on patient's age to complete this topic Care Teams Retort Forker Relationship Specialty Start Date End Date Dany Silva MD [address] [place] [id number] PCP - General Internal Medicine 07/11/21
== END 2024-11-10 15:06 | disposition home or self-care (01) ==
LOC: HO.HWSM 13:52
PROVIDERS: Visit Provider Advanced Practice Midwife
DX: R35.0 Frequency of micturition (principal); B37.31 Acute candidiasis of vulva and vagina; A60.9 Anogenital herpesviral infection, unspecified; Z11.3 Encounter for screening for infections with a predominantly sexual mode of transmission
CPT/HCPCS: 99213

== ENCOUNTER 2024-11-10 15:04 | Outpatient (REF) | payer OTHER, SELFPAY ==
[2024-11-11 13:57] LABS: CT PCR NOT DETECTED (Not Detect.); NG PCR NOT DETECTED (Not Detect.)
[2024-11-11 17:10] LABS: Bacterial Vaginosis PCR NEGATIVE (Negative); Candida Group PCR DETECTED (Not Detect); Candida glab krusei PCR NOT DETECTED (Not Detect); Trichomonas vaginalis PCR NOT DETECTED (Not Detect)
== END 2024-11-10 15:05 | disposition home or self-care (01) ==
LOC: HO.HHCL 15:04
PROVIDERS: Visit Provider Advanced Practice Midwife
DX: N89.8 Other specified noninflammatory disorders of vagina (principal); Z20.2 Contact with and (suspected) exposure to infections with a predominantly sexual mode of transmission
CPT/HCPCS: 81515; 87491; 87591